=== PATIENT | female | born 1955 | race Caucasian/White ===

== ENCOUNTER 2017-02-26 08:49 | Emergency (ER) | payer MEDICAID, OTHER ==
[2017-02-26 09:04] VITALS: BMI 28.3
[2017-02-26 09:09] VITALS: TEMP 98.7
--- NOTE | 2017-02-26 09:13 | ED PDOC ---
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 elbow and lower back pain s/p fall about 1 month ago from mechanical fall. Pt. stated that she has pain since, never see her own pmd Hay Martin for evaluation, here at the ER for evaluation, back pain and lt. elbow pain aggravated by movement and relief with the immobilization, no urinary or bowel incontinence or retention, no urinary symptoms, no numbness or tingling, non-radiating, no other medical or psychological complaints. Past Medical History - Provider Review Nursing Documentation Reviewed: Yes - Past History Past History: No Previous - Infectious Disease Hx of Infectious Diseases: None - Tetanus Immunization Tetanus Immunization: Unknown - Reproductive Menopause: Yes - Cardiac Hx Cardiac Disorders: No - Pulmonary Hx Respiratory Disorders: No - Neurological Hx Neurological Disorder: No - HEENT Hx HEENT Disorder: No - Renal Hx Renal Disorder: No - Endocrine/Metabolic Hx Endocrine Disorders: Yes Hx Diabetes Mellitus Type 2: Yes - Hematological/Oncological Hx Blood Disorders: No - Integumentary Hx Dermatological Disorder: No - Musculoskeletal/Rheumatological Hx Musculoskeletal Disorders: No Other/Comment: PLANTAR FACIATITIS-BILATERALLY - Gastrointestinal Hx Gastrointestinal Disorders: No - Genitourinary/Gynecological Hx Genitourinary Disorders: No - Psychiatric Hx Psychophysiologic Disorder: No Hx Substance Use: No - Surgical History Hx Appendectomy: Yes Hx Section: Yes Hx Hysterectomy: Yes Hx Tubal Ligation: Yes Other/Comment: neo warren,breast lift - Anesthesia Hx Anesthesia: Yes Hx Anesthesia Reactions: No Hx Malignant Hyperthermia: No - Suicidal Assessment Feels Threatened In Home Enviroment: No Family/Social History - Physician Review Nursing Documentation Reviewed: Yes Family/Social History: Unknown Family HX Smoking Status: Never Smoked Hx Alcohol Use: No Hx Substance Use: No Hx Substance Use Treatment: No Allergies/Home Meds Allergies/Adverse Reactions: Allergies tilapia Allergy (Intermediate, Uncoded 02/26/17 09:12) ITCHING Home Medications: Home Meds Medication Instructions Recorded Confirmed Glipizide [Glipizide ER] 5 mg PO DAILY 02/26/17 02/26/17 Review of Systems - Review of Systems Constitutional: absent: Fatigue, Fevers Eyes: absent: Vision Changes ENT: absent: Hearing Changes Respiratory: absent: SOB, Cough Cardiovascular: absent: Chest Pain Gastrointestinal: absent: Abdominal Pain, Nausea, Vomiting Musculoskeletal: Arthralgias, Back Pain, Myalgias. absent: Neck Pain, Joint Swelling Skin: absent: Rash, Pruritis, Skin Lesions Neurological: absent: Headache, Dizziness Psychiatric: absent: Anxiety, Depression Physical Exam Vital Signs Reviewed: Yes Vital Signs Temp Pulse Resp BP Pulse Ox 02/26/17 09:08 98.7 F 86 16 145/75 99 Temperature: Afebrile Blood Pressure: Normal Pulse: Regular Respiratory Rate: Normal Appearance: Positive for: Well-Appearing, Non-Toxic, Comfortable Pain Distress: Moderate Mental Status: Positive for: Alert and Oriented X 3 - Systems Exam Head: Present: Atraumatic, Normocephalic Pupils: Present: PERRL Extroacular Muscles: Present: EOMI Conjunctiva: Present: Normal Mouth: Present: Moist Mucous Membranes Neck: Present: Normal Range of Motion Respiratory/Chest: Present: Clear to Auscultation, Good Air Exchange, Other (no bony tenderness or rib cage tenderness). No: Respiratory Distress, Accessory Muscle Use, Wheezes, Decreased Breath Sounds, Rales, Retracting, Rhonchi, Tachypneic, Tender to Palpation Cardiovascular: Present: Regular Rate and Rhythm, Normal S1, S2. No: Murmurs Abdomen: Present: Normal Bowel Sounds. No: Tenderness, Distention, Peritoneal Signs Back: Present: Normal Inspection, Other (Thoracic and LS spine: +ttp on the lt. paraspinal muscle on the lumbar region, no midline tenderness or step off noted , FROM without limitation, sensation intact, motor 5/5, no saddling gait. ). No : Pain with Leg Raise, Decubitus Ulcer Upper Extremity: Present: Normal Inspection, Other (LUE: mild +ttp on the medial epicondyle region, no swelling, no deformities, FROM without limitation, no scaphoid tenderness, no ecchymosis, sensation intact, motor 5/5, +radial pulse, capillary refill< 2 seconds, neurovascular intact. ). No: Cyanosis, Edema Lower Extremity: Present: Normal Inspection. No: Edema Neurological: Present: GCS=15, CN II-XII Intact, Speech Normal Skin: Present: Warm, Dry, Normal Color. No: Rashes Psychiatric: Present: Alert, Oriented x 3, Normal Insight, Normal Concentration Medical Decision Making ED Course and Treatment: 02/26/17 09:36 -Toradol/percocet/lidoderm -xrays -observe and reassess 02/26/17 11:20 -UA show no UTI -LS spine xray and lt. elbow xray: unremarkable show no acute traumatic findings. -Pt. feels well, walking with normal gait and posture, no coughing or shortness of breath, no cardiopulmonary complaints, sindhu wrap apply to left elbow, will discharge home. -Discharge home with naproxen, flexeril, lidoderm, bed rest, follow up with your own pmd and orthopedic/physical therapist within 2 days, return to the ER for any new or worsening signs or symptoms. - Lab Interpretations Lab Results: Lab Results 02/26/17 10:14: Urine Color Yellow, Urine Appearance Clear, Urine pH 6.0, Ur Specific [place] 1.015, Urine Protein Negative, Urine Glucose (UA) >=1000, Urine Ketones Negative, Urine Blood Negative, Urine Nitrate Negative, Urine Bilirubin Negative, Urine Urobilinogen 0.2, Ur Leukocyte Esterase Negative - RAD Interpretation Radiology Orders: 02/26/17 09:30 ELBOW LEFT 3 VIEWS ROUTINE [RAD] Stat LS SPINE WITH OBL > 18 YRS OLD [RAD] Stat LS Spine: PROCEDURE: Radiographs of the Lumbar Spine. HISTORY: lt. lower back pain s/p fall x 1 month COMPARISON: No prior. FINDINGS: BONES: Normal alignment. No listhesis. No fracture. DISC SPACES: Unremarkable. OTHER FINDINGS: There is a large calcification in the left flank which is most likely a calcified hematoma. This measures 3.3 x 10 cm IMPRESSION: Unremarkable radiographs of the lumbar spine. Lt. elbow xray: PROCEDURE: Radiographs of the left elbow. HISTORY: lt. elbow pain s/p fall x 1 month COMPARISON: No prior. FINDINGS: BONES: Normal. No fracture. JOINTS: Normal. No osteoarthritis. SOFT TISSUES: Normal. JOINT EFFUSION: None. OTHER FINDINGS: None IMPRESSION: Unremarkable radiographs of the left elbow. Branch Office Manager: Radiologist - Medication Orders Current Medication Orders: Discontinued Medications Ketorolac Tromethamine (Toradol) 60 mg IM STAT STA Stop: 02/26/17 09:30 Last Admin: 02/26/17 10:16 Dose: 60 mg MAR Pain Assessment Document 02/26/17 10:16 SF (Rec: 02/26/17 10:16 SF [id number]) Pain Reassessment Is this a pain reassessment? Yes Sleep Is patient sleeping during reassessment? No Presence of Pain Presence of Pain Yes Pain Scale Used Pain Scale Used Numeric IM Administration Charges Document 02/26/17 10:16 SF (Rec: 02/26/17 10:16 SF [id number]) Injection Site MAR Injection Site Left Deltoid Charges for Administration # of IM Administrations 1 Lidocaine (Lidoderm) 1 ea TD STAT STA Stop: 02/26/17 09:30 Last Admin: 02/26/17 10:17 Dose: 1 ea MAR Transdermal Patch Site Document 02/26/17 10:17 SF (Rec: 02/26/17 10:17 SF [id number]) Transdermal Patch Site Transdermal Patch Site Left Lower Back Oxycodone/Acetaminophen (Percocet 5/325 Mg Tab) 1 tab PO STAT STA Stop: 02/26/17 09:30 Last Admin: 02/26/17 10:15 Dose: 1 tab MAR Pain Assessment Document 02/26/17 10:15 SF (Rec: 02/26/17 10:16 SF [id number] Pain Reassessment Is this a pain reassessment? Yes Sleep Is patient sleeping during reassessment? 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 Disposition/Present on Arrival - Present on Arrival Any Indicators Present on Arrival: No History of DVT/PE: No History of Uncontrolled Diabetes: Yes Urinary Catheter: No History of Decub. Ulcer: No History Surgical Site Infection Following: None - Disposition Have Diagnosis and Disposition been Completed?: Yes Diagnosis: Fall, Lower back pain, Joint pain, elbow Disposition: HOME/ ROUTINE Disposition Time: 11:24 Patient Plan: Discharge Condition: IMPROVED Discharge Instructions (ExitCare): Acute Low Back Pain (ED), Arthralgia (ED) Print Language: SWEDISH Additional Instructions: -Discharge home with naproxen, flexeril, lidoderm, bed rest, follow up with your own pmd and orthopedic/physical therapist within 2 days, return to the ER for any new or worsening signs or symptoms. Prescriptions: Cyclobenzaprine [Cyclobenzaprine HCl] 10 mg PO TID PRN #21 tab PRN Reason: Other Lidocaine 5% [Lidoderm] 1 patch TP DAILY PRN #14 patch PRN Reason: Other Naproxen 500 mg PO BID PRN #22 tab PRN Reason: Other Referrals: Hay Martin DO [Primary Care Provider] - Follow up with primary Savita Morin MD [Staff Provider] - Follow up with primary Forms: WORK NOTE
[2017-02-26] MEDS ORDERED: Oxycodone/Acetaminophen 5/325 mg Tab PO STA (09:29)
[2017-02-26] MEDS ORDERED: Lidocaine 5% Patch TD STA (09:29)
[2017-02-26 10:58] LABS: URINE BILIRUBIN NEGATIVE (NEGATIVE); URINE BLOOD NEGATIVE (NEGATIVE); URINE GLUCOSE (UA) >=1000 mg/dL (NEGATIVE); URINE LEUKOCYTE ESTERASE NEGATIVE Leu/uL (NEGATIVE); URINE NITRATE NEGATIVE (NEGATIVE); URINE PROTEIN NEGATIVE mg/dL (<30 mg/dL); URINE UROBILINOGEN 0.2 E.U./dL (<1 E.U./dL)
[2017-02-26 10:59] LABS: URINE APPEARANCE CLEAR (CLEAR); URINE COLOR YELLOW (YELLOW)
--- NOTE | 2017-02-26 11:16 | RAD ---
PROCEDURE: Radiographs of the left elbow. HISTORY: lt. elbow pain s/p fall x 1 month COMPARISON: No prior. FINDINGS: BONES: Normal. No fracture. JOINTS: Normal. No osteoarthritis. SOFT TISSUES: Normal. JOINT EFFUSION: None. OTHER FINDINGS: None IMPRESSION: Unremarkable radiographs of the left elbow.
--- NOTE | 2017-02-26 11:18 | RAD ---
PROCEDURE: Radiographs of the Lumbar Spine. HISTORY: lt. lower back pain s/p fall x 1 month COMPARISON: No prior. FINDINGS: BONES: Normal alignment. No listhesis. No fracture. DISC SPACES: Unremarkable. OTHER FINDINGS: There is a large calcification in the left flank which is most likely a calcified hematoma. This measures 3.3 x 10 cm IMPRESSION: Unremarkable radiographs of the lumbar spine.
[2017-02-26 11:45] VITALS: RESP 18; O2SAT 98
[2017-02-26 11:53] VITALS: BP 137/82; PULSE 82
== END 2017-02-26 11:53 | disposition home or self-care (01) ==
LOC: ED 08:49
DX: M54.5 Low back pain (principal); M25.522 Pain in left elbow; Z91.81 History of falling
CPT/HCPCS: 72110; 73080; 81003; 96372; 99284; J1885